=== PATIENT | male | born 1960 | race Caucasian/White ===

== ENCOUNTER 2019-12-17 07:59 | Emergency (ER) | payer OTHER, SELFPAY ==
[2019-12-17] VITALS (14 sets, daily range): BP systolic 178–236; BP diastolic 74–103; PULSE 72–96; RESP 8–22; TEMP 36.4; O2SAT 97–100
--- NOTE | ~2019-12-17 | CT_ITS ---
EXAMINATION: CT brain wo con EXAM DATE: 12/17/2019 09:08 INDICATION: Weakness, lack of coordination. TECHNIQUE: Spiral CT of the head was performed without contrast. Axial, coronal and sagittal images were reviewed. The dose-length product (DLP) for this examination was 605.33 mGy-cm. The exposure w as tailored according to patient size, and iterative reconstruction (ASIR) was used as additional dos e reduction technique. There is no prior study for comparison. FINDINGS: There is no acute intraparenchymal hemorrhage. No evidence of intraparenchymal brain mass lesion. No evidence of acute infarction. There is no mass effect or midline shift. The ventricles are normal in size. There are no extra-axial collections. There are no acute calvarial fractures. T he orbits are unremarkable. Soft tissue is unremarkable. The visualized sinuses and mastoid air brando ls are well aerated. IMPRESSION: 1. No acute intracranial findings. Reviewed, dictated and finalized at location A.
--- NOTE | ~2019-12-17 | XR_ITS ---
EXAMINATION: XR chest 1V portable EXAM DATE: 12/17/2019 09:10 INDICATION: Dizziness, diaphoresis. Weakness. TECHNIQUE: Portable AP frontal chest x-ray was obtained. There is no prior study for comparison. FINDINGS: Moderate hyperinflation. The lungs are clear. There are no pleural effusions. Cardiac ned houette is prominent but magnified on this AP technique. There is no pneumothorax suspected. The b ones and soft tissues are unremarkable. IMPRESSION: 1. No acute cardiopulmonary findings. 2. Hyperinflation. Reviewed, dictated and finalized at location A.
[2019-12-17] MEDS: MECLIZINE HCL 25 MG TABLET PO (08:40)
[2019-12-17] MEDS: SODIUM CHLORIDE 0.9% IV 1,000 ML 999 ML IV CONT (08:40)
--- NOTE | 2019-12-17 08:45 | ED.DIZZY ---
HPI - Dizziness General Chief Complaint: Dizziness Stated Complaint: DIZZINESS, SWEATY WHILE AT WORK Time Seen by Provider: 12/17/19 08:11 Source: RN notes reviewed History of Present Illness HPI Narrative: Patient presents emergency department from home for dizziness. Patient states symptoms began approximately 3 minutes prior to arrival. He states he was sitting down when he began to have a feeling of room spinning sensation. States that symptoms are better when he lays back. Patient denies any fevers or chills vision changes numbness or tingling in the extremities chest pain shortness of breath or any other symptoms. States he took no previous medication for the symptoms Related Data Allergies Allergy/AdvReac Type Severity Reaction Status Date / Time No Known Allergies Allergy Verified 12/17/19 08:34 Review of Systems Review of Systems: Narrative: Gen.: Denies fevers or chills Eyes: Denies eye pain or visual change ENT: Denies congestion Respiratory: Denies shortness of breath or cough CV: Denies chest pain or palpitations GI: Denies abdominal pain nausea, emesis or diarrhea Musculoskeletal: Denies back pain or muscle pain Neuro: See HPI Skin: Denies rash Except as documented, all other systems reviewed and negative [facility] Past Medical History Medical History (Updated 12/17/19 @ 13:28 by Manan Dave DO) Patient denies significant medical history Social History Social History (Updated 12/17/19 @ 08:46 by Manan Dave DO) Smoking status: Never smoker Gender identity (if verbalized by the patient): Male Exam Narrative: Exam Narrative: APPEARANCE: No acute distress, nontoxic, resting in bed HEENT: Normocephalic, atraumatic, OMM, TMs clear bilaterally EYES: PERRL, EOMI NECK: Supple, nontender, full range of motion without pain, no meningismus RESPIRATORY: No respiratory distress, clear to auscultation bilaterally with no rhonchi wheezing or rales CARDIOVASCULAR: RRR s murmur ABDOMINAL: Soft, nontender, nondistended MUSCULOSKELETAL: Moves all extremities. No clubbing, cyanosis or edema. NEURO: A and O ?3, following commands, speech normal, cranial nerves II through XII grossly intact,muscle strength 5 out of 5 bilateral upper and lower extremities dizziness with sitting upright that improves with laying down flat SKIN:: Warm, dry. Normal Color PSYCHIATRIC: Normal affect/mood Course Course Emergency Course: Patient notes some improvement of dizziness with Antivert and resolution with Valium. Patient able to get up and ambulate in ED with no difficulty. He denies any dizziness with ambulation. Discussed with patient his blood pressure states he has not seen a doctor in over 20 years. He denies having chest pain or shortness of breath. I called discussed with Dr. Lucas who is the PCP communication spec. At this time request patient be started on lisinopril 10 mg and hydrochlorothiazide 25mg daily Dr. Lucas took the patient's phone number and will follow-up as an outpatient Discussed with patient results of workup and diagnosis. Discussed need for follow-up with primary care, proper use of medication, and reasons to return to the emergency department. Patient understands and agrees to current treatment plan Vital Signs Vital signs: Vital Signs Temperature 97.5 F L 12/17/19 08:08 Pulse Rate 92 12/17/19 08:08 Respiratory Rate 18 12/17/19 08:08 Blood Pressure 225/77 H 12/17/19 08:08 Pulse Oximetry 99 12/17/19 08:08 Temperature 97.5 F L 12/17/19 08:08 Pulse Rate 96 12/17/19 13:22 Respiratory Rate 18 12/17/19 13:22 Blood Pressure 188/90 H 12/17/19 13:22 Pulse Oximetry 98 12/17/19 13:15 MDM - Dizziness MDM Narrative Medical decision making narrative: Patient's vertigo is felt to be likely peripheral in origin. There is no diplopia, dysarthria or dysphagia. Patient's gait is stable and there are no cerebral deficits to exam. Risk factor for central causes of vertigo reviewed. P
[2019-12-17 08:48] LABS: Basophils Absolute Auto 0.1 K/mm3 (0.0-0.1); Basophils Percent Auto 0.7 % (0.2-1.2); Eosinophils Absolute Auto 0.2 K/mm3 (0-0.3); Eosinophils Percent Auto 2.1 % (0-4.4); Hematocrit 43.9 % (42.0-52.0); Hemoglobin 14.5 g/dL (14.0-18.0); Immature Granulocyte Absolute 0.04 K/mm3 (0.00-0.031); Immature Granulocyte Percent A 0.4 % (0-0.5); Lymphocytes Absolute Auto 2.79 K/mm3 (0.9-3.2); Lymphocytes Percent Auto 27.8 % (18.3-44.2); Mean Corpuscular Hemoglobin 26.9 pg (26-34); Mean Corpuscular Volume 81.3 fl (80-100); Mean Platelet Volume 9.6 fl (7.4-10.4); Monocytes Absolute Auto 0.9 K/mm3 (0.1-0.6); Monocytes Percent Auto 9.3 % (2.6-8.5); Neutrophils Percent Auto 59.7 % (45.5-73.1); Platelet Count Result 271 k/mm3 (150-375); Red Cell Distribution Width 14.6 % (11.5-14.5)
[2019-12-17 08:58] LABS: Prothrombin Time 12.4 Seconds (11.1-14.7)
[2019-12-17 08:59] LABS: Partial Thromboplastin Time 26.5 SECONDS (22.3-36.8)
[2019-12-17 09:01] LABS: Alanine Aminotransferase 13 U/L (4-50); Albumin Level 4.5 g/dL (3.5-5.1); Alkaline Phosphatase 59 U/L (38-126); Anion Gap 10 mmol/L (8-16); Aspartate Amino Transferase 19 U/L (17-59); Bilirubin,Total 0.6 mg/dL (0.2-1.3); Blood Urea Nitrogen 13 mg/dL (9-20); Calcium 9.2 mg/dL (8.4-10.2); Carbon Dioxide 24 mmol/L (22-30); Chloride 105 mmol/L (98-107); Estimated CRCL calculation 68 ml/min; Estimated Glomerular Filt Rate > 60; Glucose 122 mg/dL (75-110); Sodium 139 mmol/L (137-145)
[2019-12-17 09:13] LABS: Troponin I 0.013 ng/mL (0.000-0.034)
--- NOTE | 2019-12-17 10:17 | PC.NURSE ---
Pt states gets dizzy when he stands and is unable to void at present. Dr. Dave made aware.
[2019-12-17] MEDS: diazePAM 2 MG TABLET PO (10:22)
[2019-12-17 10:26] LABS: Add Urine Microscopic? YES; Appearance Urine Clear (Clear); Bilirubin Urine Negative (Negative); Blood Urine Negative (Negative); Color Urine Yellow (Yellow); Glucose Urine UA Negative (Negative); Ketones Urine 1+ mg/dL (Negative); Leukocyte Esterase Ur Negative LEU/UL (Negative); Mucus Urine Rare /lpf; Nitrate Urine Negative (Negative); Protein Urine Negative (Negative); RBC Urine 0-2 /hpf (0-2); Specific Grav Ur 1.015 (1.001-1.035); Squamous Epithelial Cell Urine Rare /hpf (Few); Urobilinogen Urine Negative mg/dL (<2.0); WBC Urine 0-3 /hpf
--- NOTE | 2019-12-17 11:29 | PC.NURSE ---
Pt asleep, awakens easily. States that dizziness has improved at present he thinks.
--- NOTE | 2019-12-17 11:52 | PC.NURSE ---
pt. walked with no assistance. pt stated he wasn't dizzy. pt stated he feels better.
[2019-12-17] MEDS: hydrALAZINE HCL 20 MG/ML VIAL 10 MG IV PUSH (12:43)
--- NOTE | 2019-12-17 13:26 | ECG_ITS ---
Measurements Intervals [place] Rate: 86 P: 49 AR: 164 QRS: 26 QRSD: 88 T: -2 QT: 385 QTc: 461 Interpretive Statements SINUS RHYTHM POSSIBLE LEFT ATRIAL ENLARGEMENT LEFT VENTRICULAR HYPERTROPHY AND ST-T CHANGE CANNOT RULE OUT SEPTAL INFARCT, AGE INDETERMINATE BORDERLINE ST-T WAVE ABNORMALITY- INF/LAT LEADS BASELINE WANDER- AVR, AVL, AVF, V2-V6 ABNORMAL ECG Electronically Signed On 12-17-2019 15:01:57 CDT by Brent Raymond D.O.
[2019-12-17] MEDS: hydroCHLOROthiazide 25 MG TABLET PO (13:54)
[2019-12-17] MEDS: lisinopriL 10 MG TABLET PO (13:54)
== END 2019-12-17 14:00 | disposition home or self-care (01) ==
PROVIDERS: Emergency Provider Emergency Medicine
DX: R42 Dizziness and giddiness (principal); I10 Essential (primary) hypertension; R94.31 Abnormal electrocardiogram [ECG] [EKG]; I51.7 Cardiomegaly
CPT/HCPCS: 36415; 70450; 71045; 80053; 81001; 84484; 85025; 85610; 85730; 93005; 96361; 96374; 99284; A9270; J0360; J7030